=== PATIENT | male | born 1960 | race Caucasian/White ===

== ENCOUNTER 2020-12-26 17:33 | Emergency (ER) | payer SELFPAY ==
[~2020-12-26] VITALS: Ht 182.9 cm; Wt 81.7 kg
[2020-12-26] MEDS ORDERED: CYCL10 PO (19:56)
== END 2020-12-26 20:26 | disposition home or self-care (01) ==
LOC: ER 17:33
DX: M62.830 Muscle spasm of back (principal)
CPT/HCPCS: 72070; 72100; 96372; 99283-25; A9270; J1885

== ENCOUNTER 2021-07-25 20:16 | Emergency (ER) | payer OTHER ==
[~2021-07-25] VITALS: Ht 182.9 cm; Wt 72.6 kg
[~2021-07-25 20:16] MED LIST: CYCL10 PO
[2021-07-25] MEDS ORDERED: ONDA4ODT MM (20:37)
[2021-07-25] MEDS ORDERED: DEXA6 PO (20:55)
== END 2021-07-25 21:09 | disposition home or self-care (01) ==
LOC: ER 20:16
DX: U07.1 COVID-19 (principal)
CPT/HCPCS: 99282; A9270

== ENCOUNTER 2021-07-26 19:05 | Emergency (ER) | payer OTHER ==
[~2021-07-26] VITALS: Ht 182.9 cm; Wt 72.6 kg
[~2021-07-26 19:05] MED LIST changes: +DEXA6 PO; +ONDA4ODT MM
[2021-07-26 20:22] LABS: Hematocrit 37.4 % (37.0-53.0); Hemoglobin 13.1 g/dL (13.5-17.5); Mean Corpuscular HGB 30.3 pg (26.0-34.0); Mean Corpuscular Volume 86 fL (80-100); Mean Platelet Volume 10.1 fL (9.1-12.4); Platelet Count 207 K/mm3 (150-400); RDW Coefficient Variation 13.2 % (11.7-14.2); RDW Standard Deviation 41.5 fL (35.1-46.3); Red Blood Cell Count 4.33 M/mm3 (4.30-5.90); White Blood Cell Count 15.95 K/mm3 (4.00-11.30)
[2021-07-26 20:41] LABS: Alanine Aminotransfer (ALT/SGP 29 U/L (12-78); Albumin, Blood 2.8 g/dL (3.4-5.0); Albumin/Globulin Ratio 0.9 (0.8-1.8); Alk Phos 48 U/L (50-136); Anion Gap 9 mmol/L (6-16); Aspartate Aminotrans (AST/SGOT 34 U/L (12-37); Bilirubin, Total 0.4 mg/dL (0.1-1.0); Blood Urea Nitrogen 21 mg/dL (8-24); Bun/Creatinine Ratio 24.6 (12.0-20.0); CO2, Blood 23 mmol/L (21-32); Chloride, Blood 99 mmol/L (98-108); Creatinine, Blood 0.85 mg/dL (0.60-1.20); Globulin, Blood 3.1 g/dL (2.2-4.0); Glomerular Filtration Rate >60 (60-); Glucose, Blood 111 mg/dL (70-99); Potassium, Blood 4.4 mmol/L (3.5-5.5); Sodium, Blood 131 mmol/L (136-145); Total Protein, Blood 5.9 g/dL (6.4-8.2); Troponin I 0.018 ng/mL (0.000-0.040)
[2021-07-26 21:04] LABS: BASOPHILS PERCENT MAN 0 % (0-2); EOSINOPHILS PERCENT MAN 0 % (0-6); LYMPHOCYTES ABSOLUTE MAN 8.45 K/mm3 (0.84-5.20); LYMPHOCYTES PERCENT MAN 53 % (21-46); METAMYELOCYTE ABSOLUTE MAN 0.15 K/mm3 (0.00-0.00); METAMYELOCYTE PERCENT MAN 1 % (0-0); MONOCYTES PERCENT MAN 0 % (4-13); NEUTROPHILS ABSOLUTE MAN 7.33 K/mm3 (1.96-9.15); SEG NEUTROPHILS PERCENT MAN 46 % (41-73); TOTAL CELLS COUNTED 100
== END 2021-07-26 22:55 | disposition left against medical advice (07) ==
LOC: ER 19:05
PROVIDERS: Physician Assistant
DX: U07.1 COVID-19 (principal); R10.13 Epigastric pain
CPT/HCPCS: 36415; 71045; 80053; 83690; 84484; 85025; 93005; 93010; 99285-25; A9270

== ENCOUNTER → 2021-08-21 | Outpatient (CLI) | payer OTHER ==
[2021-08-21 19:37] LABS: PSA, %Free 6.3 %; PSA, Free 0.325 ng/mL
== END | disposition home or self-care (01) ==
LOC: LAB 16:10 → LAB SHORT 16:10
PROVIDERS: Internal Medicine Hematology & Oncology
DX: R97.20 Elevated prostate specific antigen [PSA] (principal)
CPT/HCPCS: 84153; 84154

== ENCOUNTER → 2022-05-01 | Outpatient (CLI) | payer OTHER | END | disposition home or self-care (01) | LOC: LAB SHORT 10:17 → LAB 10:17 | PROVIDERS: Internal Medicine Hematology & Oncology | DX: R97.20 Elevated prostate specific antigen [PSA] (principal) | CPT/HCPCS: G0103 ==

== ENCOUNTER → 2022-09-26 | Outpatient (CLI) | payer OTHER ==
[2022-09-26 12:37] LABS: Campylobacter Sp Not Detected (NOT DETECT)
[2022-09-26 12:38] LABS: Adenovirus F 40/41 Not Detected (NOT DETECT); Astrovirus Not Detected (NOT DETECT); Cryptosporidium Not Detected (NOT DETECT); Cyclospora Cayetanensis Not Detected (NOT DETECT); E. Coli O157 Not Detected (NOT DETECT); Entamoeba Histolytica Not Detected (NOT DETECT); Enteroaggregative E. coli-EAEC Not Detected (NOT DETECT); Enteropathogenic E. coli-EPEC Not Detected (NOT DETECT); Enterotoxigenic E. coli-ETEC Not Detected (NOT DETECT); Giardia Lamblia Not Detected (NOT DETECT); Norovirus GI/GII Not Detected (NOT DETECT); Plesiomonas Shigelloides Not Detected (NOT DETECT); Rotavirus A Not Detected (NOT DETECT); Salmonella Sp Not Detected (NOT DETECT); Sapovirus Not Detected (NOT DETECT); Shiga Toxin-prod E. coli-STEC Not Detected (NOT DETECT); Shigella/Enteroin E. coli-EIEC Not Detected (NOT DETECT); Vibrio Cholerae Not Detected (NOT DETECT); Vibrio Sp Not Detected (NOT DETECT); Yersinia Enterocolitica Not Detected (NOT DETECT)
== END | disposition home or self-care (01) ==
LOC: LAB SHORT 04:00 → LAB 04:00
PROVIDERS: Nurse Practitioner
DX: R10.84 Generalized abdominal pain (principal); R19.7 Diarrhea, unspecified
CPT/HCPCS: 87507

== ENCOUNTER → 2023-01-03 | Outpatient (CLI) | payer OTHER ==
[~2023-01-03] MED LIST changes: +ALBU90OI; +LOSA25
[2023-01-03 15:55] LABS: International Normalized Ratio 1.19; Prothrombin Time Results 12.4 Sec (9.7-11.5)
[2023-01-03 15:59] LABS: Hematocrit 38.1 % (37.0-53.0); Hemoglobin 12.8 g/dL (13.5-17.5); Mean Corpuscular HGB 29.1 pg (26.0-34.0); Mean Corpuscular HGB Conc 33.6 g/dL (31.5-36.5); Mean Corpuscular Volume 87 fL (80-100); Platelet Count 167 K/mm3 (150-400); RDW Coefficient Variation 15.6 % (11.7-14.2); RDW Standard Deviation 49.7 fL (35.1-46.3); White Blood Cell Count 24.32 K/mm3 (4.00-11.30)
[2023-01-03 17:20] LABS: BAND PERCENT MAN 4 % (0-8); BASOPHILS PERCENT MAN 0 % (0-2); EOSINOPHILS PERCENT MAN 0 % (0-6); LYMPHOCYTES ABSOLUTE MAN 17.02 K/mm3 (0.84-5.20); LYMPHOCYTES PERCENT MAN 70 % (21-46); MONOCYTES ABSOLUTE MAN 0.48 K/mm3 (0.16-1.47); MONOCYTES PERCENT MAN 2 % (4-13); SEG NEUTROPHILS PERCENT MAN 24 % (41-73); TOTAL CELLS COUNTED 100
[2023-01-03 17:36] LABS: Albumin, Blood 2.9 g/dL (3.4-5.0); Albumin/Globulin Ratio 1.2 (0.8-1.8); Bun/Creatinine Ratio 11.1 (12.0-20.0); Calcium, Blood 7.9 mg/dL (8.5-10.1); Creatinine, Blood 1.26 mg/dL (0.60-1.20); Globulin, Blood 2.4 g/dL (2.2-4.0); Potassium, Blood 3.9 mmol/L (3.5-5.5); Total Protein, Blood 5.3 g/dL (6.4-8.2)
== END | disposition home or self-care (01) ==
LOC: LAB SHORT 14:44
PROVIDERS: Internal Medicine Gastroenterology
DX: K63.89 Other specified diseases of intestine (principal)
CPT/HCPCS: 36415; 80053; 85025; 85610

== ENCOUNTER → 2024-10-13 | Outpatient (CLI) | payer OTHER ==
[2024-10-14 11:44] LABS: Percent Saturation 17.3 % (20.0-50.0)
== END ==
LOC: LAB 10:26 → LAB SHORT 10:26
PROVIDERS: Internal Medicine Hematology & Oncology
DX: E53.8 Deficiency of other specified B group vitamins (principal); E61.1 Iron deficiency
CPT/HCPCS: 82607; 82728; 83540; 83550

== ENCOUNTER → 2025-03-10 | Outpatient (CLI) | payer OTHER ==
[2025-03-11 19:04] LABS: PSA, %Free 10.5 %; PSA, Free 0.702 ng/mL
== END | disposition home or self-care (01) ==
LOC: LAB SHORT 16:35 → LAB 16:35
PROVIDERS: Internal Medicine Hematology & Oncology
DX: R97.20 Elevated prostate specific antigen [PSA] (principal)
CPT/HCPCS: 84153; 84154

== ENCOUNTER → 2025-07-22 | Outpatient (CLI) | payer OTHER ==
[2025-07-22 15:44] LABS: Hematocrit 35.8 % (37.0-53.0); Hemoglobin 11.4 g/dL (13.5-17.5); Mean Corpuscular HGB Conc 31.8 g/dL (31.5-36.5); Mean Corpuscular Volume 93 fL (80-100); NRBC ABSOLUTE 0.00 K/mm3 (0.00-0.02); NRBC Auto 0.0 /100 WBC (0.0-0.2); Platelet Count 87 K/mm3 (150-400); RDW Coefficient Variation 15.8 % (11.7-14.2); RDW Standard Deviation 53.5 fL (35.1-46.3)
[2025-07-22 17:06] LABS: BASOPHILS ABSOLUTE MAN 0.00 K/mm3 (0.00-0.23); BASOPHILS PERCENT MAN 0 % (0-2); EOSINOPHILS ABSOLUTE MAN 0.00 K/mm3 (0.00-0.68); EOSINOPHILS PERCENT MAN 0 % (0-6); LYMPHOCYTES ABSOLUTE MAN 102.32 K/mm3 (0.84-5.20); LYMPHOCYTES PERCENT MAN 95 % (21-46); MONOCYTES ABSOLUTE MAN 0.00 K/mm3 (0.16-1.47); MONOCYTES PERCENT MAN 0 % (4-13); NEUTROPHILS ABSOLUTE MAN 5.38 K/mm3 (1.96-9.15); SEG NEUTROPHILS PERCENT MAN 5 % (41-73)
== END | disposition home or self-care (01) ==
LOC: LAB SHORT 14:14 → LAB 14:14
PROVIDERS: Internal Medicine Hematology & Oncology
DX: C91.10 Chronic lymphocytic leukemia of B-cell type not having achieved remission (principal)
CPT/HCPCS: 85025